=== PATIENT | female | born 2000 | race African-American/Black ===

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

== ENCOUNTER 2021-01-25 19:07 | Emergency (ER) | payer MEDICAID, OTHER ==
[~2021-01-25] VITALS: Ht 154.9 cm; Wt 50.0 kg
[2021-01-25 19:18] VITALS: BP 133/85
== END 2021-01-25 21:31 | disposition left against medical advice (07) ==
LOC: ER 20:18
DX: Z53.21 Procedure and treatment not carried out due to patient leaving prior to being seen by health care provider (principal)

== ENCOUNTER 2022-03-17 05:23 | Emergency (ER) | payer MEDICAID, OTHER ==
[~2022-03-17] VITALS: Ht 165.1 cm; Wt 69.0 kg
[2022-03-17] MEDS ORDERED: ONDANSETRON HCL 4MG/2ML INJ IV STA (05:37)
[2022-03-17] MEDS ORDERED: KETOROLAC 30MG/ML VIAL IV STA (05:37)
[2022-03-17] MEDS ORDERED: SODIUM CHLORIDE 0.9% 1,000 ML IV ONE (05:45)
[2022-03-17 05:59] VITALS: BP 102/60
[2022-03-17 06:25] LABS: CHLORIDE 103 mEq/L (98-107)
[2022-03-17 06:33] LABS: HCG SCREEN NEGATIVE
== END 2022-03-17 06:32 | disposition left against medical advice (07) ==
LOC: ER 05:23
DX: R10.13 Epigastric pain (principal); F12.10 Cannabis abuse, uncomplicated; Z88.8 Allergy status to other drugs, medicaments and biological substances
CPT/HCPCS: 36415; 80053; 83690; 84703; 96361; 96374; 96375; 99284; J1885; J2405; J7030